=== PATIENT | female | born 1995 ===

== ENCOUNTER 2020-08-18 19:30 | Emergency (ER) | payer SELFPAY ==
[~2020-08-18] VITALS: Ht 162.6 cm; Wt 122.7 kg
[2020-08-18 19:31] VITALS: BP 140/71
[2020-08-18] MEDS ORDERED: PREN1CHW6 PO (19:37)
== END 2020-08-18 20:00 | disposition left against medical advice (07) ==
LOC: M ED 19:30
DX: Z53.21 Procedure and treatment not carried out due to patient leaving prior to being seen by health care provider (principal)